=== PATIENT | male | born 1935 | race Caucasian/White ===

== ENCOUNTER 2017-12-12 09:21 | Outpatient (REF) | payer MEDICARE, SELFPAY ==
--- NOTE | 2017-12-12 08:42 | SKI_PTH ---
PATIENT: Michael Johnson LOC: [facility] U#:[id number] AGE/SX: 82/M ROOM: RE12/12/[address]: Maninder Salgado MD : 1935 BED: DIS: 12/12/2017 SPEC #: [id number] RECD: 12/12/17 17:54 STATUS: ZACHARY REQ #: [id number] KAPIL: 12/12/17 08:[address]: Maninder Salgado DEPT: Surgical Specimen RECD BY: Daya Thakur ENTERED: 12/12/17 17:54 SP TYPE: ALEXANDER CHU DR: Bridgette Sanchez Tissues: 1 - SKIN BIOPSY(SHAVE/PUNCH) Procedures: SKIN LEVEL 4 Comments: [id number]
== END 2017-12-12 09:41 ==
LOC: LBN 09:21
PROVIDERS: PCP Nurse Practitioner Family; Visit Provider Otolaryngology
DX: L57.0 Actinic keratosis (principal)
CPT/HCPCS: 88305

== ENCOUNTER 2021-07-14 12:23 | Outpatient (REF) | payer MEDICARE, SELFPAY ==
--- NOTE | 2021-07-14 10:53 | SKI_PTH ---
PATIENT: Michael Johnson LOC: [facility] U#:[id number] AGE/SX: 85/M ROOM: RE07/14/[address]: Naveed Bunn DO : 1935 BED: DIS: 07/14/2021 SPEC #: [id number] RECD: 07/17/21 12:42 STATUS: ZACHARY REQ #: [id number] KAPIL: 07/14/21 10:[address]: Naveed Bunn DEPT: Surgical Specimen RECD BY: Daya Thakur ENTERED: 07/17/21 12:43 SP TYPE: SKI OTHR DR: Rolando Monte Tissues: 1 - SKIN BIOPSY(SHAVE/PUNCH) Procedures: SKIN LEVEL 4 Comments: [id number]
== END 2021-07-14 12:24 | disposition home or self-care (01) ==
LOC: LBN 12:23
PROVIDERS: PCP Nurse Practitioner Acute Care; Visit Provider Otolaryngology Otolaryngology/Facial Plastic Surgery
DX: D04.62 Carcinoma in situ of skin of left upper limb, including shoulder (principal)
CPT/HCPCS: 88305

== ENCOUNTER 2021-08-04 12:15 | Outpatient (REF) | payer MEDICARE, SELFPAY ==
--- NOTE | 2021-08-04 10:20 | SKI_PTH ---
PATIENT: Michael Johnson LOC: [facility] U#:[id number] AGE/SX: 86/M ROOM: RE08/04/[address]: Naveed Bunn DO : 1935 BED: DIS: 08/04/2021 SPEC #: [id number] RECD: 08/04/21 14:15 STATUS: ZACHARY REQ #: [id number] KAPIL: 08/04/21 10:[address]: Naveed Bunn DEPT: Surgical Specimen RECD BY: Lynda Lagunas ENTERED: 08/04/21 14:16 SP TYPE: SKI OTHR DR: Rolando Monte Tissues: 1 - SKIN BIOPSY(SHAVE/PUNCH) Procedures: SKIN LEVEL 4 Comments: [id number]
== END 2021-08-04 12:16 | disposition home or self-care (01) ==
LOC: LBN 12:15
PROVIDERS: PCP Nurse Practitioner Acute Care; Visit Provider Otolaryngology Otolaryngology/Facial Plastic Surgery
DX: D04.62 Carcinoma in situ of skin of left upper limb, including shoulder (principal)
CPT/HCPCS: 88305